=== PATIENT | female | born 1935 | race Caucasian/White ===

== ENCOUNTER 2023-08-01 08:01 | Day surgery (SDC) | payer MEDICARE, BC ==
[2023-07-28 15:03] VITALS: BMI 17.2
[2023-08-01] MEDS ORDERED: PHENYLEPHRINE-NS 100 MCG/ML 10 ML SYRINGE ONE (11:17)
[2023-08-01] MEDS ORDERED: PROPOFOL 20 ML ONE (11:17)
[2023-08-01] MEDS ORDERED: KETAMINE 100 MG/ML (5ML VIAL) ONE (11:23)
[2023-08-01] MEDS ORDERED: Lidocaine 1% PF 5 ML VIAL ONE (11:24)
[2023-08-01] MEDS ORDERED: Sterile Water 10 ML ONE (11:24)
== END 2023-08-01 12:35 | disposition home or self-care (01) ==
LOC: CSHSDC 08:01
PROVIDERS: ATTEND Internal Medicine Gastroenterology
PROC: 0DJ08ZZ Inspection of Upper Intestinal Tract, Via Natural or Artificial Opening Endoscopic (ICD-10-PCS; principal; 2023-08-01)
DX: K92.2 Gastrointestinal hemorrhage, unspecified (principal); K92.0 Hematemesis; I48.91 Unspecified atrial fibrillation; E78.5 Hyperlipidemia, unspecified; I10 Essential (primary) hypertension; E11.9 Type 2 diabetes mellitus without complications; K44.9 Diaphragmatic hernia without obstruction or gangrene; I25.10 Atherosclerotic heart disease of native coronary artery without angina pectoris; N39.0 Urinary tract infection, site not specified; Z88.5 Allergy status to narcotic agent; Z88.8 Allergy status to other drugs, medicaments and biological substances; Z98.890 Other specified postprocedural states; Z85.3 Personal history of malignant neoplasm of breast; Z79.01 Long term (current) use of anticoagulants
CPT/HCPCS: J2704